=== PATIENT | female | born 1955 | race Caucasian/White ===

== ENCOUNTER 2023-10-27 14:51 | Outpatient (RCR) | payer MEDICARE, SELFPAY | END 2023-10-27 23:59 | disposition home or self-care (01) | LOC: RPT 14:51 | PROVIDERS: ATTENDING PHYSICIAN Nurse Practitioner; FAMILY PHYSICIAN Family Medicine | DX: N81.4 Uterovaginal prolapse, unspecified (principal); N81.6 Rectocele; R35.0 Frequency of micturition; M62.89 Other specified disorders of muscle; Z73.6 Limitation of activities due to disability | CPT/HCPCS: 97110; 97140; 97163; 97530 ==

== ENCOUNTER 2023-11-17 12:53 | Outpatient (RCR) | payer MEDICARE, SELFPAY | END 2023-11-17 23:59 | disposition home or self-care (01) | LOC: RPT 12:53 | PROVIDERS: ATTENDING PHYSICIAN Nurse Practitioner; FAMILY PHYSICIAN Family Medicine | DX: N81.4 Uterovaginal prolapse, unspecified (principal); N81.6 Rectocele; R35.0 Frequency of micturition; M62.89 Other specified disorders of muscle; Z73.6 Limitation of activities due to disability | CPT/HCPCS: 97110; 97112; 97140; 97530 ==

== ENCOUNTER → 2023-12-14 12:40 | Outpatient (REF) | payer MEDICARE, SELFPAY | LOC: RAD 12:40 | PROVIDERS: ATTENDING PHYSICIAN Surgery Vascular Surgery; FAMILY PHYSICIAN Family Medicine | DX: I72.8 Aneurysm of other specified arteries (principal) | CPT/HCPCS: 74176 ==

== ENCOUNTER 2023-12-22 12:52 | Outpatient (RCR) | payer MEDICARE, SELFPAY | END 2023-12-22 23:59 | disposition home or self-care (01) | LOC: RPT 12:52 | PROVIDERS: ATTENDING PHYSICIAN Nurse Practitioner; FAMILY PHYSICIAN Family Medicine | DX: N81.4 Uterovaginal prolapse, unspecified (principal); N81.6 Rectocele; R35.0 Frequency of micturition; M62.89 Other specified disorders of muscle; Z73.6 Limitation of activities due to disability | CPT/HCPCS: 97110; 97112; 97140; 97530 ==

== ENCOUNTER 2024-01-19 12:09 | Outpatient (RCR) | payer MEDICARE, SELFPAY | END 2024-01-19 23:59 | disposition home or self-care (01) | LOC: RPT 12:09 | PROVIDERS: ATTENDING PHYSICIAN Nurse Practitioner; FAMILY PHYSICIAN Family Medicine | DX: N81.4 Uterovaginal prolapse, unspecified (principal); N81.6 Rectocele; R35.0 Frequency of micturition; M62.89 Other specified disorders of muscle; Z73.6 Limitation of activities due to disability | CPT/HCPCS: 97110; 97112; 97530 ==

== ENCOUNTER 2024-02-02 13:19 | Outpatient (RCR) | payer MEDICARE, SELFPAY | END 2024-02-02 23:59 | disposition home or self-care (01) | LOC: RPT 13:19 | PROVIDERS: ATTENDING PHYSICIAN Nurse Practitioner; FAMILY PHYSICIAN Family Medicine | DX: N81.4 Uterovaginal prolapse, unspecified (principal); N81.6 Rectocele; R35.0 Frequency of micturition; M62.89 Other specified disorders of muscle; Z73.6 Limitation of activities due to disability | CPT/HCPCS: 97110; 97112; 97530 ==

== ENCOUNTER 2024-03-01 13:39 | Outpatient (RCR) | payer MEDICARE, SELFPAY | END 2024-03-01 23:59 | disposition home or self-care (01) | LOC: RPT 13:39 | PROVIDERS: ATTENDING PHYSICIAN Nurse Practitioner; FAMILY PHYSICIAN Family Medicine | DX: N81.4 Uterovaginal prolapse, unspecified (principal); N81.6 Rectocele; R35.0 Frequency of micturition; M62.89 Other specified disorders of muscle; Z73.6 Limitation of activities due to disability | CPT/HCPCS: 97110; 97140 ==

== ENCOUNTER → 2024-03-14 | Outpatient (REF) | payer MEDICARE, SELFPAY | LOC: DHSLP | PROVIDERS: ATTENDING PHYSICIAN Internal Medicine; FAMILY PHYSICIAN Family Medicine | DX: G47.19 Other hypersomnia (principal); G47.8 Other sleep disorders; R06.83 Snoring | CPT/HCPCS: 95800 ==

== ENCOUNTER 2024-03-29 12:48 | Outpatient (RCR) | payer MEDICARE, SELFPAY | END 2024-03-29 23:59 | disposition home or self-care (01) | LOC: RPT 12:48 | PROVIDERS: ATTENDING PHYSICIAN Nurse Practitioner; FAMILY PHYSICIAN Family Medicine | DX: N81.4 Uterovaginal prolapse, unspecified (principal); R35.0 Frequency of micturition; M62.89 Other specified disorders of muscle; Z73.6 Limitation of activities due to disability; N81.6 Rectocele | CPT/HCPCS: 97530 ==

== ENCOUNTER 2024-04-11 05:57 | Day surgery (SDC) | payer MEDICARE, SELFPAY ==
[2024-04-06 12:50] VITALS: BMI 27.8
[2024-04-06 13:31] LABS: ALT (SGPT) 23 U/L (0-35); AST (SGOT) 25 U/L (14-36); Albumin 4.2 g/dl (3.5-5.0); Alkaline Phosphatase 64 U/L (38-126); Blood Urea Nitrogen 17 mg/dl (7-17); Carbon Dioxide 23 mmol/L (22-30); Chloride 104 mmol/L (98-107); Estimated Creatinine Clearance 95 ml/min; Glucose 105 mg/dl (70-99); Potassium 4.5 mmol/L (3.5-5.1); Sodium 134 mmol/L (135-145); Total Bilirubin 0.4 mg/dl (0.2-1.3); Total Protein 6.5 g/dl (6.3-8.2); eGFR > 60.00
[2024-04-06 13:36] LABS: % Basophils 1.2 % (0-2); % Eosinophils 1.5 % (0-6); % Immature Granulocytes 0.1 % (0-0.5); % Lymphocytes 25.3 % (20.5-51.1); % Neutrophils 62.9 % (42.2-75.2); Absolute Basophils 0.1 10^3/uL (0-0.2); Absolute Eosinophils 0.1 10^3/uL (0-0.7); Absolute Lymphocytes 1.7 10^3/uL (1.2-3.4); Absolute Monocytes 0.6 10^3/uL (0.1-0.6); Absolute Neutrophils 4.3 10^3/uL (1.4-6.5); Hemoglobin 13.4 g/dL (12.0-16.0); Mean Corp Hgb Conc. 35.3 g/dL (33.0-37.0); Mean Corpuscular Hgb 30.7 pg (27.0-31.0); Mean Corpuscular Volume 87.2 fL (81.0-99.0); Mean Platelet Volume 9.2 fL (7.4-10.4); Nucleated Red Blood Cells % 0 %; Platelet Count 278 10^3/uL (130-400); Red Blood Cell Count 4.36 10^6/uL (4.20-5.40); Red Cell Dist. Width 13.7 % (11.5-14.5); White Blood Cell Count 6.8 10^3/uL (4.8-10.8)
[2024-04-11] VITALS (14 sets, daily range): BP systolic 104–158; BP diastolic 67–84; BMI 27.3
[2024-04-11] MEDS: TRANSDERM-SCOP 1 PATCH TRANSDERM (07:11)
[2024-04-11 08:41] LABS: ACT-LR - POC 392 Seconds (116-155)
[2024-04-11 09:00] LABS: ACT-LR - POC 379 Seconds (116-155)
--- NOTE | 2024-04-11 10:58 | ITS.CL.ABL ---
Infant Toddler Lead Teacher - Ablation
Ablation
Procedure Report:
AFIB ablation:
Ms. Donis is a very pleasant 68 yr old woman with medical history significant for symptomatic paroxysmal atrial fibrillation who is here in the EP lab for atrial fibrillation ablation
Date of Procedure:
04/11/2024
Indications:
Symptomatic atrial fibrillation
Pre-Operative Diagnosis:
Paroxysmal Atrial fibrillation
Post-Operative Diagnosis:
Paroxysmal Atrial fibrillation
Procedure Performed:
Atrial fibrillation ablation with wide area circumferential ablation (WACA) approach for pulmonary vein isolation
Performing Physician:
Jasiel Allen MD
Assistants:
EP staff
Anesthesia:
See anesthesia records
Detailed Description of the Procedure:
Written informed consent was obtained from the patient after a full explanation of the risks and benefits of the procedure including the risks of sedation and anesthesia.
The patient was brought to the electrophysiology laboratory in stable condition in fasting state. Continuous electrocardiographic and hemodynamic monitoring was initiated.
The initial rhythm was normal sinus rhythm.
The procedure site was meticulously prepared with surgical scrub and allowed to dry with no pooling. Sterile draping was applied to cover the procedure site. The image intensifier was draped with sterile bag and positioned over the patient. After
infusion of local anesthetic, vascular access was obtained under ultrasound guidance and sheaths were placed over guide wire as detailed below.
Sheath and Catheter Placement:
In the right femoral vein, an 8-Djiboutian sheath was placed for use during the ablation procedure. A second 9-Fr sheath was placed for use during intracardiac echo procedure.
The sheaths were upgraded as needed during the case. Intracardiac catheters were positioned using direct fluoroscopic guidance.� ICE catheter was placed in RA. The following catheters / sheaths were placed
Sheaths:
��������������� Agilis sheath in right femoral vein upgraded from 8Fr in right femoral vein
��������������� 9Fr in right femoral vein
��������������� 7Fr in right femoral
Catheters:
������������� [employer]ense Garrido Thermacool STSF bidirectional (D/F) - at locations of HRA, RV, LA and LV.
������������� Pentaray catheter � at locations of RA and LA
������������� ICE catheter - at locations of RA, SVC, and RV.
������������� Bard Decapolar catheter in RA and CS
Intracardiac ECHO:
An 8-Djiboutian AcuNav intracardiac ECHO (ICE) probe was advanced through the 9-Djiboutian sheath in the femoral vein into the right atrium under fluoroscopic and ICE ultrasound image guidance and a baseline ECHO study was performed. The left atrial size
was normal. There was trace tricuspid regurgitation. The aortic valve was grossly normal. There was normal left ventricular size and function. There was a trace pericardial effusion. The ARASH has normal velocities noted on Doppler. All the four veins
were identified and good flow noted.
During the procedure, ICE was used for monitoring of complications, guidance of trans-septal puncture, monitor the catheter position and tracking ablation lesions. No change in the pericardial space noted throughout the procedure.
Trans-septal Puncture:
Heparin was initiated and infused to maintain appropriate ACT.
A J-tipped guidewire was advanced through the 8-Djiboutian sheath in the right femoral vein into the superior vena cava under fluoroscopic and ICE guidance. The 8-Djiboutian sheath was exchanged for an Agilis sheath which was advanced into the superior vena
cava. A BRK needle was advanced until the tip was slightly behind the tip of the dilator inside the Agilis. The apparatus was withdrawn until it was in contact with the fossa ovalis. The position was adjusted based on fluoroscopy and ultrasound
images from ICE. Under fluoroscopic, hemodynamic and ICE ultrasound guidance, left atrium was cannulated by advancing the needle. Once atrial septum was cannulated, the needle was pulled back and a BMW guide wire was advanced through the needle into
the left atrium. The guide wire was advanced into the left superior pulmonary vein. Both the sheath and the dilator was advanced into the left atrium. The dilator with the needle was withdrawn. Blood was aspirated from the Agilis sheath and arterial
blood confirmed. The sheath was flushed. Saline injection noted into the left atrium on ICE. The pressure waveform was checked ad LA pressure measured. The penta-ray catheter was advanced in the Agilis sheath into the left pulmonary vein.
The 3-D mapping was done and then the penta-ray was switched to ablation catheter and back to penta-ray as needed.
3D Electroanatomic Mapping:
Using the Pentaray catheter advanced through Agilis sheath into the left atrium, an electroanatomic map (EAM) of the left atrium was created using [employer] Carto mapping system. The map was used for localization of catheter position and
tacking of ablation lesions. The EAM of the left atrium showed 4 pulmonary veins with all four electrically connected to the body the LA. It showed no significant scar on the posterior wall of the LA. The LA was normal in size.
Following the EAM, preparations were made for ablation.
Phrenic nerve stimulation attempt:
The right sided pulmonary veins were identified and the anterior antrum and the deep anterior locations of the PVs were check with high output stimulation that showed no phrenic nerve capture in any of the potential ablation areas. The whole of the
anterior wall was mapped and the deep veins were also tested and once no sign of phrenic capture noted, a design line was created through the areas of tested antral myocardium for ablation lesions.
Ablation:
Pulmonary vein Isolation:
Radiofrequency ablation was performed using an open irrigation, force-sensing 3.5mm radiofrequency ablation catheter (ThermocoGamida Cell STSF) by completing the circumferential lesions around the left and right pulmonary veins achieving pulmonary vein
isolation.
All the ablation lesions were guided by the [email or web address] SURPOINT module with the posterior lesions were limited to 45 cabrera for SURPOINT lesion index goal of 400 and anterior wall lesions were limited to SURPOINT index goal of 450.
The esophagus was noted to be on the left side of the LA near the PV antra based on the locations of the esophageal temperature probe. Ablation was stopped for any temperature increase of 0.1 degree C. Max esophageal temperature was 37.5C� (baseline
37)
EP study / Confirmation of the PVI and bidirectional block:
Following achievement of entrance block at the pulmonary veins, pacing from the pentaray catheter in each of the four veins at 10 milliamps for 2 milliseconds showed entrance and exit block. All PVI were rechecked at the end of the case and remained
isolated with dissociated and local capture with pacing. Entrance and exit block were demonstrated in all veins.
The LA was mapped with Carto EAM in sinus rhythm confirming the line of block at the ablation lesions lines.
Sinus Node Function: The sinus node functions are within acceptable normal range.
The AV natividad functions are deemed within normal range.
Arrhythmia Induction:
No sustained arrhythmia was induced at the end of the study.� Aggressive attempts were not able to induce atrial flutter.
Procedure End
ICE study was done again that showed no epicardial accumulation. No complications noted.
Following the completion of the EP study, catheters were removed. Protamine 30 mg was given at the end of the procedure and ACT was checked repeatedly. The sheaths were removed and hemostasis achieved with �figure of 8 suture� and manual compression
after acceptable ACT is achieved.
Left atrial Pressure:
Pre-Procedure: Mean LA pressure was 8mmHg
Post-Procedure: Mean LA pressure was 11mmHg
Post-Procedure: Mean RA pressure was 8mmHg
Estimated Blood loss:
<10 cc
Specimens Removed:
None.
Implants / Devices:
None
Urine output:
None
Packs / Drains/ Tubes:
None
Instrument / Sponge Count Correct:
Yes
Complications of the Procedure:
None
Condition of Patient at Time of Transfer:
Hemodynamically stable with no neurological or vascular compromise.
Summary:
Successful atrial fibrillation ablation with circumferential bidirectional line of block at pulmonary vein antra (Pulmonary vein isolation)
[2024-04-11] MEDS: ANESTHETIC LOZENGE 1 LOZENGE PO (11:44)
--- NOTE | 2024-04-11 13:48 | W.PN.UPDATE ---
Update Note
Progress Note Update
Pt seen post PVI/RFA. Right femoral groin site without ht/bleeding, nontender. OOB ambulating, urinating without difficulty. Post EKG NSR 80s, no acute changes. Resume eliquis today. 2 week rx for protonix post procedure sent to pharmacy. Followup
at [facility] as scheduled. Home later today if groin site/tele remain stable.
== END 2024-04-11 14:30 | disposition home or self-care (01) ==
LOC: CATH 05:57
PROVIDERS: ATTENDING PHYSICIAN Internal Medicine Cardiovascular Disease; FAMILY PHYSICIAN Family Medicine; OTHER PHYSICIAN Internal Medicine Cardiovascular Disease
DX: I48.0 Paroxysmal atrial fibrillation (principal); E78.5 Hyperlipidemia, unspecified; I34.1 Nonrheumatic mitral (valve) prolapse; E03.9 Hypothyroidism, unspecified; Z85.3 Personal history of malignant neoplasm of breast; R00.2 Palpitations; Z79.01 Long term (current) use of anticoagulants
CPT/HCPCS: C1769; C1894; C1730; C1732; C1766; C1892; C1759; 36415; 76937; 80053; 85025; 85347; 86850; 86900; 86901; 93005; 93656

== ENCOUNTER → 2024-06-28 08:51 | Outpatient (REF) | payer MEDICARE, SELFPAY | LOC: RAD 08:51 | PROVIDERS: ATTENDING PHYSICIAN Nurse Practitioner; FAMILY PHYSICIAN Family Medicine | DX: I48.0 Paroxysmal atrial fibrillation (principal); M79.661 Pain in right lower leg; M79.662 Pain in left lower leg | CPT/HCPCS: 93922 ==

== ENCOUNTER 2024-12-01 16:20 | Emergency (ER) | payer MEDICARE, SELFPAY ==
[2024-12-01 16:25] VITALS: BP 187/111
[2024-12-01 16:46] LABS: % Basophils 0.9 % (0-2); % Eosinophils 1.4 % (0-6); % Immature Granulocytes 0.3 % (0-0.5); % Lymphocytes 19.7 % (20.5-51.1); % Monocytes 8.3 % (1.7-9.3); % Neutrophils 69.4 % (42.2-75.2); Absolute Basophils 0.1 10^3/uL (0-0.2); Absolute Eosinophils 0.1 10^3/uL (0-0.7); Absolute Lymphocytes 1.8 10^3/uL (1.2-3.4); Absolute Monocytes 0.8 10^3/uL (0.1-0.6); Absolute Neutrophils 6.3 10^3/uL (1.4-6.5); Hematocrit 41.5 % (37.0-47.0); Hemoglobin 14.5 g/dL (12.0-16.0); Mean Corp Hgb Conc. 34.9 g/dL (33.0-37.0); Mean Corpuscular Hgb 31.3 pg (27.0-31.0); Mean Corpuscular Volume 89.6 fL (81.0-99.0); Nucleated Red Blood Cells % 0 %; Platelet Count 274 10^3/uL (130-400); Red Blood Cell Count 4.63 10^6/uL (4.20-5.40); Red Cell Dist. Width 13.9 % (11.5-14.5); White Blood Cell Count 9.1 10^3/uL (4.8-10.8)
[2024-12-01 17:00] LABS: ALT (SGPT) 29 U/L (0-35); AST (SGOT) 25 U/L (14-36); Albumin 4.6 g/dl (3.5-5.0); Alkaline Phosphatase 92 U/L (38-126); Blood Urea Nitrogen 20 mg/dl (7-17); Calcium 9.3 mg/dl (8.4-10.2); Carbon Dioxide 20 mmol/L (22-30); Chloride 103 mmol/L (98-107); Glucose 114 mg/dl (70-99); Sodium 134 mmol/L (135-145); Total Bilirubin 0.6 mg/dl (0.2-1.3); Total Protein 7.1 g/dl (6.3-8.2); eGFR > 60.00
[2024-12-01 17:10] LABS: Troponin I < 0.012 ng/ml
--- NOTE | 2024-12-01 17:46 | ED.GENMED ---
History of Present Illness
<JACKI Marie - Last Filed: 12/01/24 20:17>
General
Chief Complaint: Chest Pain
Source: patient
Exam Limitations: none
Time Seen by Provider: 12/01/24 17:09
Nursing documentation reviewed up to this point in time: agreed with
History of Present Illness
History of Present Illness:
Patient is a 6-year-old female who presents to the ER with complaints of elevated heart rate/palpitations. Patient has a history of A-fib and did have a cardiac ablation April 11, 2024. She is on Eliquis twice a day. She did miss 1 dose on Wednesday
but did take her dose this morning. She reports that she used a nasal spray this morning(Azelastine) and about 15 -20 minutes after developed palpitations that resolved and then palpitations restarted again at 2:40 PM. Patient complains of
palpitations but reports it does not feel like her A-fib. She had a little chest discomfort here in the ER. She reports her blood pressure was 170/111 when she took her blood pressure at the time of symptoms.
She is a patient of Dr. Neff
Review of Systems
<JACKI Marie - Last Filed: 12/01/24 20:17>
Review of Systems
Allergies reviewed?: Yes
All Other Systems: ROS reviewed and negative except as documented in HPI and ROS
Constitutional: Reports no symptoms; Denies fever, fatigue or chills
Respiratory: Denies trouble breathing
Cardiac: Reports chest pain and palpitations; Denies diaphoresis or syncope
ABD/GI: Reports no symptoms
: Reports no symptoms
Musculoskeletal: Reports no symptoms
Skin: Reports no symptoms
Neurological: Reports no symptoms
Hematologic/Lymphatic: Reports no symptoms
Psychiatric: Reports no symptoms
Phy Exam
<JACKI Marie - Last Filed: 12/01/24 20:17>
General Physical Exam
General Presentation: no apparent distress
General age: appears stated age
General Skin: warm and dry
General Habitus: normal
General Mental: alert
General Hydration: appears well hydrated
Cardiovascular Exam
Cardiovascular Exam: tachycardia
Pulmonary Exam
Pulmonary Exam: lungs clear and no respiratory distress
Neurological Exam
Neurological Exam: alert and oriented x3
Musculoskeletal Exam
Musculoskeletal Exam: full ROM
Skin Exam
Skin Exam: normal color and warm/dry
Psychiatric Exam
Psychiatric Exam: normal mood/affect
Scores
<JACKI Marie - Last Filed: 12/01/24 20:17>
Heart Score for Chest Pain Patients
STEMI patient?: Not applicable
Course
<JACKI Marie - Last Filed: 12/01/24 20:17>
Orders/Labs/Results
Orders:
Orders
12/01/24 16:21
Electrocardiogram (*1) Urgent
Reason for Study: Chest Pain
EKG- Treatment ONCE
12/01/24 16:33
Complete Blood Count/With Diff Urgent
Comprehensive Metabolic Panel Urgent
Free T4 Urgent
TSH Reflex To Free T4 Urgent
Comment: ADD ON
Troponin I Urgent
12/01/24 17:56
Add On- LAB Urgent
Tests Added?: tsh with reflexive t 4
12/01/24 17:58
0.9% Sodium Chloride 1000 ml [Nss] 1,000 ml IV BOLUS
12/01/24 18:03
Diltiazem 125 mg/125 ml Nss [Cardizem] 125 mg in 125 ml IV NOW
Initial dose in mg/hr, then titrate:: 5
Titrate to keep:: Heart rate 80-100 bpm
Titrate by mg/hr:: 5 mg/hr
Frequency of titrations (minutes):: 15
Maximum dose in mg/hr:: 15
Diltiazem HCl [Cardizem] 20 mg IV NOW STA
12/01/24 18:44
EKG PRN [ECG as needed] As Directed
ECG as needed for:: Rhythm Change
Abnormal Lab Results
12/01/24
16:33
MCH 31.3 H pg
(27.0-31.0)
Absolute Monos (auto) 0.8 H 10^3/uL
(0.1-0.6)
Lymphocytes % 19.7 L %
(20.5-51.1)
Sodium 134 L mmol/L
(135-145)
Carbon Dioxide 20 L mmol/L
(22-30)
BUN 20 H mg/dl
(7-17)
Glucose 114 H mg/dl
(70-99)
TSH (Reflex) 6.31 H uIU/ml
(0.47-4.68)
12/01/24 16:33
12/01/24 16:33
Vital Signs
Initial and Last Documented VS:
Initial Vital Signs
Temp Pulse Resp BP Pulse Ox
97.9 F 143 18 187/111 99
12/01/24 16:25 12/01/24 16:25 12/01/24 16:25 12/01/24 16:25 12/01/24 16:25
Last Documented Vital Signs
Temp Pulse Resp BP Pulse Ox
97.9 F 89 18 116/72 99
12/01/24 16:25 12/01/24 20:15 12/01/24 20:15 12/01/24 20:00 12/01/24 20:15
Buckle Frame Shaper consulted with Physician
Buckle Frame Shaper consulted with physician?: Yes
Name of Physician Consulted: dr Goldman
<Marisabel Goldman DO - Last Filed: 12/01/24 22:54>
Orders/Labs/Results
Orders:
Orders
12/01/24 16:21
Electrocardiogram (*1) Urgent
Reason for Study: Chest Pain
EKG- Treatment ONCE
12/01/24 16:33
Complete Blood Count/With Diff Urgent
Comprehensive Metabolic Panel Urgent
Free T4 Urgent
TSH Reflex To Free T4 Urgent
Comment: ADD ON
Troponin I Urgent
12/01/24 17:56
Add On- LAB Urgent
Tests Added?: tsh with reflexive t 4
12/01/24 17:58
0.9% Sodium Chloride 1000 ml [Nss] 1,000 ml IV BOLUS
12/01/24 18:03
Diltiazem 125 mg/125 ml Nss [Cardizem] 125 mg in 125 ml IV NOW
Initial dose in mg/hr, then titrate:: 5
Titrate to keep:: Heart rate 80-100 bpm
Titrate by mg/hr:: 5 mg/hr
Frequency of titrations (minutes):: 15
Maximum dose in mg/hr:: 15
Diltiazem HCl [Cardizem] 20 mg IV NOW STA
12/01/24 18:44
EKG PRN [ECG as needed] As Directed
ECG as needed for:: Rhythm Change
Abnormal Lab Results
12/01/24
16:33
MCH 31.3 H pg
(27.0-31.0)
Absolute Monos (auto) 0.8 H 10^3/uL
(0.1-0.6)
Lymphocytes % 19.7 L %
(20.5-51.1)
Sodium 134 L mmol/L
(135-145)
Carbon Dioxide 20 L mmol/L
(22-30)
BUN 20 H mg/dl
(7-17)
Glucose 114 H mg/dl
(70-99)
TSH (Reflex) 6.31 H uIU/ml
(0.47-4.68)
12/01/24 16:33
12/01/24 16:33
Vital Signs
Initial and Last Documented VS:
Initial Vital Signs
Temp Pulse Resp BP Pulse Ox
97.9 F 143 18 187/111 99
12/01/24 16:25 12/01/24 16:25 12/01/24 16:25 12/01/24 16:25 12/01/24 16:25
Last Documented Vital Signs
Temp Pulse Resp BP Pulse Ox
97.9 F 89 18 116/72 99
12/01/24 16:25 12/01/24 20:15 12/01/24 20:15 12/01/24 20:00 12/01/24 20:15
<JACKI Marie - Last Filed: 12/01/24 20:17>
MDM/Problems Addressed
Differential Diagnosis Includes:
Not limited to A-fib a flutter
MDM/Problems Addressed:
As documented patient is a 69-year-old female with history of A-fib status post cardiac ablation March 2024 presents with palpitations fast heart rate. Patient is on Eliquis but did skip her dose on Wednesday and she is on Toprol which she takes twice
a day. She presents tachycardic however awake alert no acute distress this appears to be in atrial flutter. Patient was given a weight-based dose of Cardizem IV bolus and drip and did convert to normal sinus rhythm. Patient is well-appearing she
is afebrile with a normal white count cardiac troponin negative.
Patient was eval by ED physician Case discussed with cardiology on-call patient may increase her Toprol to 50 mg twice daily with close outpatient follow-up with cardiology.
<JACKI Marie - Last Filed: 12/01/24 20:17>
*Pulse Oximetry
Patient hypoxic: no
*Critical Care Note
Total Time (30-74mins, 75-104mins- exclusive of procedures): Not Applicable
<JACKI Marie - Last Filed: 12/01/24 20:17>
Patient Management
Discussion with other providers: Natural Remedy Consultant (DR Ruth )
ED Attending Note
<JACKI Marie - Last Filed: 12/01/24 20:17>
-
Portions of this chart may have been created with voice recognition software.� Occasional wrong word or��sound alike� substitutions may have occurred due to the inherent limitations of voice recognition software.
<Marisabel Goldman DO - Last Filed: 12/01/24 22:54>
ED Attending Note
Patient seen and examined by attending physician: Yes
I performed the substantive portion of visit, reviewed & personally made and approve the management plan that is documented in note by myself or NICOLA.: Yes
ED Attending Note:
I have reviewed and agree with Allison ECHEVERRIA's history and treatment plan. 69-year-old female history of atrial fibrillation on metoprolol and Eliquis, previously had ablation presenting with palpitations starting today. Patient reports
chest pain, shortness of breath with palpitations. Patient states that she missed a dose of Eliquis few days ago but is been compliant with her metoprolol. Initial EKG shows atrial flutter. Decision made not to cardiovert patient given patient is
recently missed dose of Eliquis. Started on Cardizem. Patient spontaneously converted to sinus rhythm. Patient reports no palpitations, no chest pain, no shortness of breath once converted to sinus rhythm. Stable for discharge with cardiology
follow-up
Discharge Plan
Departure
Patient Disposition: Home (Routine Discharge)
Date of Disposition: 12/01/24
Time of Disposition: 19:52
Patient with high blood pressure during this ER visit?: Yes
Condition: Fair
Covid-19: Not Applicable
Discharge Problem:
Atrial flutter
Instructions: BLOOD PRESSURE
Prescriptions:
No Action
metoprolol succinate 50 mg Tablet Extended Release 24 Hr
50 mg PO BID
levothyroxine [Synthroid] 125 mcg Tablet
125 mcg PO DAILY
coQ10 (ubiquinol) 100 mg Capsule
100 mg PO Daily
Eliquis 5 mg Tablet
5 mg PO BID
d-mannose 500 mg Capsule
500 mg PO BID
magnesium glycinate 100 mg magnesium Capsule
400 mg PO DAILY
pantoprazole 40 mg tablet,delayed release (DR/EC)
40 mg PO DAILY Qty: 14 0RF
Referrals:
Arianne Butterfield MD [Family Provider] -
Primitivo Neff MD [Active] -
Activity Restrictions/Additional Instructions:
As discussed avoid alcohol caffeine chocolate etc. Please increase Toprol XL to 50 mg twice a day.
Follow-up with your radio recorder as soon as possible.
Please call the office Wednesday morning for appointment.
Return to the ER for any worsening of symptoms
Interventions
Interventions:
*Risk Screen - Suicide Last Done: 12/01/24 16:25
*General Assessment Last Done: 12/01/24 16:25
*Neglect/Abuse Screening Last Done: 12/01/24 16:25
*ED- Fall Risk Assessment Last Done: 12/01/24 18:06
*ED COVID-19 Vaccine History Last Done: 12/01/24 16:25
*Nursing Disposition Last Done: 12/01/24 20:29
ED- Cardiac Assessment Last Done: 12/01/24 18:05
Discharge Date and Time
Discharge Date/Time: 12/01/24 20:31
Print Language: CROATIAN
[2024-12-01 17:53] VITALS: BP 153/103
[2024-12-01 18:02] VITALS: BMI 27.9
[2024-12-01] MEDS: NSS 1000 IV (18:04)
[2024-12-01] MEDS: CARDIZEM 20 MG IV (18:15)
[2024-12-01] MEDS: CARDIZEM 125 IV (18:16)
[2024-12-01 18:25] VITALS: BP 130/83
[2024-12-01 18:41] LABS: TSH Reflex To Free T4 6.31 uIU/ml (0.47-4.68)
[2024-12-01 19:00] VITALS: BP 121/73
[2024-12-01 19:35] LABS: Free T4 1.55 ng/dl (0.78-2.19)
[2024-12-01 19:46] VITALS: BP 128/82
[2024-12-01 20:00] VITALS: BP 116/72
== END 2024-12-01 20:31 | disposition home or self-care (01) ==
LOC: EMR 16:20
PROVIDERS: Emergency Medicine; EMERGENCY PHYSICIAN Emergency Medicine; FAMILY PHYSICIAN Family Medicine
DX: I48.92 Unspecified atrial flutter (principal); I48.91 Unspecified atrial fibrillation; Z79.01 Long term (current) use of anticoagulants; Z79.899 Other long term (current) drug therapy
CPT/HCPCS: 99284; 96374; 96361; 80053; 84439; 84443; 84484; 85025; 93005

== ENCOUNTER → 2025-03-22 10:54 | Outpatient (REF) | payer MEDICARE, SELFPAY | LOC: RCS 10:54 | PROVIDERS: ATTENDING PHYSICIAN Internal Medicine Cardiovascular Disease; FAMILY PHYSICIAN Family Medicine | DX: I48.0 Paroxysmal atrial fibrillation (principal); I34.0 Nonrheumatic mitral (valve) insufficiency; I10 Essential (primary) hypertension | CPT/HCPCS: 93306 ==